=== PATIENT | male | born 1975 | race American Indian/Alaskan Native ===

== ENCOUNTER 2021-01-18 14:55 | Emergency (ER) | payer SELFPAY ==
[2021-01-18 15:09] VITALS: BP 139/80
--- NOTE | 2021-01-18 16:38 | Emergency Department Report ---
ED General Adult HPI - General Chief complaint: Sore Throat Stated complaint: SORE THROAT/HURT TO SWALLOW Time Seen by Provider: 01/18/21 16:31 Source: patient Mode of arrival: Stretcher Limitations: No Limitations - History of Present Illness Initial comments: 45-year-old immunocompetent male patient presents to the emergency department with complaints of sore throat starting yesterday. Associated symptoms include sneezing, nasal congestion, and nonproductive cough. No known sick contacts. No current steroid or antibiotic use. Patient has been taking Claritin with limited symptomatic relief. No recent travel. Denies fever, chills, neck stiffness, rash, shortness of breath, abdominal pain, vomiting, wheezing. Denies all other complaints at this time. - Related Data Previous Rx's Medication Instructions Recorded Last Taken Type Brompheniramine/Pseudoephed/Dm 118 ml PO Q4H PRN #1 bottle 01/18/21 Unknown Rx [Bromfed Dm Cough Syrup] Naproxen [Naprosyn] 500 mg PO BID #20 tablet 01/18/21 Unknown Rx Allergies Allergy/AdvReac Type Severity Reaction Status Date / Time No Known Allergies Allergy Unverified 01/18/21 15:09 ED Review of Systems ROS: Stated complaint: SORE THROAT/HURT TO SWALLOW Other details as noted in HPI Other: GENERAL: Negative for fever, chills, weight change, anorexia, fatigue. ENT: Positive for sore throat, sneezing, nasal congestion. CARDIOVASCULAR: Negative for chest pain, palpitations, lower extremity swelling. PULMONARY: Positive for nonproductive cough. GASTROINTESTINAL: Negative for abdominal pain, nausea, vomiting, diarrhea, constipation. MUSCULOSKELETAL: Negative for joint pain, joint swelling, myalgias, back pain, neck pain. NEUROLOGICAL: Negative for headache, seizure, syncope, paresthesias, weakness. INTEGUMENTARY: Negative for erythema, rash, diaphoresis, laceration, ecchymosis. HEMATOLOGICAL: Negative for hemoptysis, hematemesis, hematochezia, hematuria. PSYCHIATRIC: Negative for hallucinations, suicidal ideation, homicidal ideation, anxiety, depression. ED Past Medical Hx - Past Medical History Previous Medical History?: No - Surgical History Past Surgical History?: No - Social History Smoking Status: Never Smoker Substance Use Type: None - Medications Home Medications: Home Medications Medication Instructions Recorded Confirmed Last Taken Type Brompheniramine/Pseudoephed/Dm 118 ml PO Q4H PRN #1 bottle 01/18/21 Unknown Rx [Bromfed Dm Cough Syrup] Naproxen [Naprosyn] 500 mg PO BID #20 tablet 01/18/21 Unknown Rx ED Physical Exam - General Limitations: No Limitations - Other Other exam information: General: Awake and alert. No acute distress. Sitting upright. Head: Atraumatic, normocephalic. Eyes: EOMI. Pupils are equal and round. Normal sclera and conjunctiva. ENT: Oral mucosa is moist. Otoscopic exam is normal. There is pharyngeal erythema and bilateral tonsillar edema without exudate. Uvula is midline and nonedematous. Patient is speaking full sentences without hoarseness and handling his secretions without difficulty. No trismus. Neck: Supple. Mild anterior cervical lymphadenopathy, right > left. Pulmonary: No respiratory distress. Clear to auscultation bilaterally. Cardiac: Regular rate and rhythm. Pulses are palpable and equal bilaterally. No lower extremity cyanosis or edema. Skin: Warm and dry. No rashes. Abdomen: Soft, non-tender, non-protuberant. No guarding, rigidity, or rebound. Bowel sounds are normal. No organomegaly or masses noted. Back: Normal alignment. No CVA tenderness. Extremities: Symmetrical. Full range of motion intact. Neurological: Alert and oriented, appropriately interactive, no focal deficits. Psych: Cooperative. Appropriate mood and affect. Speech is evenly metered. Thoughts are logically construed. ED Course Vital Signs 01/18/21 15:06 Temperature 98.8 F Pulse Rate 89 Respiratory 16 Rate Blood Pressure 139/80 O2 Sat by Pulse 100 Oximetry ED Medical Decision Making - Medical Decision Making Differential diagnosis including but not limited to: strep pharyngitis, viral pharyngitis, allergic rhinitis, peritonsillar abscess, Nigel's angina, retropharyngeal abscess, epiglottitis On reevaluation, patient remains stable. No hypoxia, no respiratory distress. Vital signs are stable. He is afebrile. He is ambulatory with out assistance. Speaking in full sentences without difficulty. Handling oral secretions without difficulty. Rapid strep test is negative. Confirmatory culture sent. History and exam findings most suggestive of viral pharyngitis. Patient will be discharged home with appropriate symptomatic management and referred to local primary care provider for close outpatient follow-up. Patient expressed understanding and is agreeable to plan of care. Disease transmission precautions discussed. Strict return precautions provided. Repeat exam is unremarkable and benign. History, exam, diagnostic testing, and current condition do not suggest worrisome pathology to warrant further testing, continued ED treatment, admission, or surgical evaluation at this point. Given the low probability of a significant medical illness, it would be more likely to result in harm than benefit to perform further testing at this stage. Discussed findings, presumptive diagnosis, need for follow-up and specific signs/symptoms that should prompt immediate return to the emergency department. Instructions were explained in detail to the patient in addition to giving written discharge information. Patient expressed understanding and was given the opportunity to ask questions, all of which were satisfactorily answered prior to discharge home. Critical care attestation.: If time is entered above; I have spent that time in minutes in the direct care of this critically ill patient, excluding procedure time. ED Disposition Clinical Impression: Acute viral pharyngitis Disposition: TO HOME OR SELFCARE Is pt being admited?: No Does the pt Need Aspirin: No Condition: Stable Instructions: Pharyngitis, [id number] Additional Instructions: Take Tylenol every 4 hours as needed for pain. Take Naprosyn twice daily with food as needed for pain. Take Bromfed as directed for cough/congestion. Use [id number] Cepacol lozenges as needed for sore throat. Use salt water gargles as needed for sore throat. Cold foods such as popsicles, ice cream, yogurt, etc. may help your sore throat as well. Rest. Drink plenty fluids. Wash hands frequently to prevent disease transmission. Do not share food or drinks with others. Follow-up with your primary care provider this week. Call tomorrow to schedule an appointment. Return to the emergency department immediately for new or worsening symptoms. Specifically, return to the emergency department immediately for fever, hoarseness, inability to swallow, inability to handle your oral secretions, mental status changes, neck stiffness, difficulty breathing, or any other concerns. Prescriptions: Brompheniramine/Pseudoephed/Dm [Bromfed Dm Cough Syrup] 118 ml PO Q4H PRN #1 bottle PRN Reason: Cough Naproxen [Naprosyn] 500 mg PO BID #20 tablet Referrals: BRISEIDA GARY MD [Staff Physician] - 3-5 Days Forms: Work/School Release Form(ED) Time of Disposition: 18:37
== END 2021-01-18 18:45 | disposition home or self-care (01) ==
LOC: ED 14:55
DX: J02.9 Acute pharyngitis, unspecified (principal); B97.89 Other viral agents as the cause of diseases classified elsewhere; Z79.899 Other long term (current) drug therapy
CPT/HCPCS: 87116; 87430; 99283